=== PATIENT | female | born 1990 | race Caucasian/White ===

== ENCOUNTER 2023-08-12 17:11 | Emergency (ER) | payer SELFPAY ==
[2023-08-12 17:16] VITALS: BP 114/70; PULSE 60; RESP 24; TEMP 36.6; O2SAT 99; BMI 25.7
== END 2023-08-12 18:55 | disposition left against medical advice (07) ==
PROVIDERS: Emergency Provider Emergency Medicine
DX: Z53.21 Procedure and treatment not carried out due to patient leaving prior to being seen by health care provider (principal)